=== PATIENT | male | born 1980 | race Caucasian/White ===

== ENCOUNTER 2023-06-24 21:50 | Emergency (ER) | payer MEDICAID ==
[~2023-06-24] VITALS: Ht 165.1 cm; Wt 52.2 kg
[2023-06-24 21:55] VITALS: BP_SYST 149; PULSE 88; RESP 18; TEMP 98.7; O2SAT 94
[2023-06-25] MEDS ORDERED: KETOROLAC TROMETHAMINE 15 MG VIAL IM ONE (00:15)
[2023-06-25] MEDS ORDERED: methocarbamoL 500 MG TABLET PO ONE (00:15)
[2023-06-25] MEDS ORDERED: LIDOCAINE PATCH 5% 1 EA TP ONE (00:15)
[2023-06-25] MEDS ORDERED: POLY17PO4 PO (04:16)
[2023-06-25] MEDS ORDERED: LIDO1ADH63 TP (04:16)
[2023-06-25 06:32] VITALS: BP_SYST 142; PULSE 97; RESP 20; TEMP 97.7; O2SAT 98
== END 2023-06-25 06:20 | disposition home or self-care (01) ==
LOC: SED 21:50
DX: M54.50 Low back pain, unspecified (principal); R10.9 Unspecified abdominal pain; K59.00 Constipation, unspecified; Z79.899 Other long term (current) drug therapy
CPT/HCPCS: 99285; 74018; J1885